=== PATIENT | female | born 1955 | race Caucasian/White ===

== ENCOUNTER 2016-08-22 22:45 | Inpatient (IN) | payer MEDICARE, OTHER ==
[~2016-08-22] VITALS: Ht 160 cm; Wt 73.5 kg
[~2016-08-22 22:45] MED LIST: CELEXA; CLINDAMYCIN300 MG PO; DILAUDID 4MG TAB4 MG; KLONOPIN0.5 MG PO; LAMICTAL 100MG100 MG PO; NEXIUM PO; OXYCONTIN80 MG PO; PERCOCET 325 MG1 TAB PO; SPIRIVA HANDIH18 MCG IH; [UNRECOGNIZED DRUG - OTHER]
[2016-08-22 23:48] LABS: HEMOGLOBIN 12.4 g/dl (12.5-16.0); MEAN CELL VOLUME 87 fl (80.0-100.0); MEAN CORPUSCULAR HEMOGLOBIN 31 pg (27.0-31.0); MEAN CORPUSCULAR HGB CONC 35 g/dl (33.0-37.0); MEAN PLATELET VOLUME 11.9 fl (7.4-10.4); PLATELET COUNT 137 K/mm3 (130-400); RED BLOOD COUNT 4.06 M/mm3 (4.10-5.30); REDCELL DISTRIBUTION WIDTH-CV 12.8 % (11.5-14.5); WHITE BLOOD COUNT 18.4 K/mm3 (4.8-10.8)
[2016-08-22 23:52] LABS: ADD PATHOLOGY DIFF REVIEW NO; HEMATOCRIT 35.4 % (37.0-47.0)
[2016-08-22 23:56] LABS: ADJUSTED CALCIUM 8.9 mg/dL (8.4-10.2); ALBUMIN 3.9 gm/dL (3.5-5.0); CALCIUM 8.8 mg/dL (8.4-10.2); CREATININE, serum 1.35 mg/dL (0.52-1.25); POTASSIUM 4.1 mmol/L (3.4-5.0); TOTAL PROTEIN 7.6 gm/dL (6.4-8.2)
[2016-08-22 23:58] LABS: BAND 46 % (0-10); NEUTROPHILS 50 % (42.0-75.2); PLATELET ESTIMATE NORMAL (NORMAL); TOTAL CELLS COUNTED 100
[2016-08-23] VITALS (7 sets, daily range): BP systolic 96–153; BP diastolic 57–75; PULSE 81–92; TEMP 97.8–99.7
[2016-08-23 00:20] LABS: INFLUENZA B NEGATIVE
[2016-08-23 01:49] LABS: ARTERIAL BLOOD GAS HCO3 22.5 meq/L (22-26); ARTERIAL BLOOD GAS PO2 51.7 mmHg (80-100)
[2016-08-23 01:50] LABS: ALLEN TEST YES; ALLENS TEST RESULT PASS; ARTERIAL BLD GAS O2 SATURATION 85.8 % (92-100); ARTERIAL BLD GAS TCO2 CT 23.7; ARTERIAL BLOOD GAS BASE EXCESS -1.9 (-2-2); ATS? YES
[2016-08-23 04:10] LABS: ARTERIAL BLD GAS O2 SATURATION 93.4 % (92-100); ARTERIAL BLD GAS TCO2 CT 23.7; ARTERIAL BLOOD GAS BASE EXCESS -1.6 (-2-2); ARTERIAL BLOOD GAS HCO3 22.6 meq/L (22-26); ARTERIAL BLOOD GAS PHT 7.41 C (7.35-7.45); ARTERIAL BLOOD GAS PO2 70.6 mmHg (80-100); ARTERIAL BLOOD GAS PO2T 70.6 (80-100); ARTERIAL BLOOD GAS pH 7.41 (7.35-7.45); OXYHEMOGLOBIN 92.7 %
[2016-08-23 04:11] LABS: ALLEN TEST NO; ATS? YES
[2016-08-23] MEDS ORDERED: SEROQUEL XR300 MG PO (07:48)
[2016-08-23] MEDS ORDERED: OXYCONTIN30 MG PO (07:53)
[2016-08-23] MEDS ORDERED: SEROQUEL50 MG PO (07:55)
[2016-08-23] MEDS ORDERED: CELEXA 20MG20 MG/TAB PO (08:39)
[2016-08-23] MEDS ORDERED: PROTONIX 40MG T40 MG PO (08:44)
[2016-08-23] MEDS ORDERED: SYNTHROID0.112 MG/T PO (08:45)
[2016-08-23] MEDS ORDERED: PROAIR HFA0.09 MG/AC IH (08:46)
[2016-08-23] MEDS ORDERED: CALCITRIOL PO (08:46)
[2016-08-23] MEDS ORDERED: KLONOPIN 0.5MG0.5 MG PO (15:10)
[2016-08-24 04:07] VITALS: BP 107/61; PULSE 80; TEMP 98.3
[2016-08-24 08:15] VITALS: BP 95/69; PULSE 72; TEMP 97.6
[2016-08-24 12:08] VITALS: BP 103/55; PULSE 74; TEMP 97.5
[2016-08-24 13:15] LABS: ALBUMIN 2.8 gm/dL (3.5-5.0); BILIRUBIN,TOTAL 0.5 mg/dL (0.0-1.0); CREATININE, serum 0.55 mg/dL (0.52-1.25); TOTAL PROTEIN 5.9 gm/dL (6.4-8.2)
[2016-08-24 13:17] LABS: MEAN CELL VOLUME 85 fl (80.0-100.0); MEAN CORPUSCULAR HGB CONC 36 g/dl (33.0-37.0); MEAN PLATELET VOLUME 12.2 fl (7.4-10.4); PLATELET COUNT 87 K/mm3 (130-400); RED BLOOD COUNT 3.36 M/mm3 (4.10-5.30); REDCELL DISTRIBUTION WIDTH-CV 13.2 % (11.5-14.5); WHITE BLOOD COUNT 12.8 K/mm3 (4.8-10.8)
[2016-08-24 13:23] LABS: ADD PATHOLOGY DIFF REVIEW NO; HEMATOCRIT 28.6 % (37.0-47.0); HEMOGLOBIN 10.4 g/dl (12.5-16.0); MEAN CORPUSCULAR HEMOGLOBIN 31 pg (27.0-31.0)
[2016-08-24 13:27] LABS: POTASSIUM 2.8 mmol/L (3.4-5.0)
[2016-08-24 13:32] LABS: BAND 22 % (0-10); NEUTROPHILS 73 % (42.0-75.2); TOTAL CELLS COUNTED 100
[2016-08-24 13:33] LABS: PLATELET ESTIMATE DECREASED (NORMAL)
[2016-08-24 16:32] VITALS: BP 112/65; PULSE 72; TEMP 98.3
[2016-08-24 20:04] VITALS: BP 132/93; PULSE 72; TEMP 97.3
[2016-08-25] VITALS (7 sets, daily range): BP systolic 112–158; BP diastolic 67–90; PULSE 75–102; TEMP 97.4–99.1
[2016-08-25 19:42] LABS: ARTERIAL BLD GAS O2 SATURATION 92.2 % (92-100); ARTERIAL BLOOD GAS BASE EXCESS -0.3 (-2-2); ARTERIAL BLOOD GAS HCO3 22.9 meq/L (22-26); ARTERIAL BLOOD GAS PHT 7.46 C (7.35-7.45); ARTERIAL BLOOD GAS PO2 63.6 mmHg (80-100); ARTERIAL BLOOD GAS PO2T 63.6 (80-100); ARTERIAL BLOOD GAS pH 7.46 (7.35-7.45); OXYHEMOGLOBIN 91.5 %
[2016-08-25 19:43] LABS: ALLEN TEST NO; ATS? YES
[2016-08-26 04:34] VITALS: BP 105/86; PULSE 102; TEMP 97.9
[2016-08-26 07:55] VITALS: BP 126/97; PULSE 105; TEMP 98.1
[2016-08-26 12:08] VITALS: BP 120/83; PULSE 98
[2016-08-26 16:34] VITALS: BP 122/81; PULSE 96; TEMP 97.2
[2016-08-26 19:42] VITALS: BP 131/82; PULSE 102; TEMP 98.8
[2016-08-27] VITALS (7 sets, daily range): BP systolic 105–137; BP diastolic 53–83; PULSE 86–100; TEMP 97.3–98.6
[2016-08-27 10:23] LABS: HEMATOCRIT 37.2 % (37.0-47.0); MEAN CELL VOLUME 85 fl (80.0-100.0); MEAN CORPUSCULAR HGB CONC 36 g/dl (33.0-37.0); MEAN PLATELET VOLUME 11.9 fl (7.4-10.4); RED BLOOD COUNT 4.37 M/mm3 (4.10-5.30); REDCELL DISTRIBUTION WIDTH-CV 13.5 % (11.5-14.5)
[2016-08-27 10:27] LABS: HEMOGLOBIN 13.4 g/dl (12.5-16.0); MEAN CORPUSCULAR HEMOGLOBIN 31 pg (27.0-31.0); PLATELET COUNT 218 K/mm3 (130-400)
[2016-08-27 10:28] LABS: ADD PATHOLOGY DIFF REVIEW NO
[2016-08-27 10:55] LABS: CALCIUM 8.1 mg/dL (8.4-10.2); CREATININE, serum 0.47 mg/dL (0.52-1.25); MAGNESIUM 1.7 mg/dL (1.6-2.3); POTASSIUM 3.4 mmol/L (3.4-5.0)
[2016-08-27 11:13] LABS: BAND 15 % (0-10); BASOPHIL 0 % (0-2); HYPOCHROMIA 1+; METAMYELOCYTE 1 % (0-0); NEUTROPHILS 80 % (42.0-75.2)
[2016-08-27 11:15] LABS: PLATELET ESTIMATE NORMAL (NORMAL); TOXIC GRANULATION PRESENT
[2016-08-27 11:17] LABS: TOTAL CELLS COUNTED 300
[2016-08-27 20:54] LABS: HEMATOCRIT 38.5 % (37.0-47.0); HEMOGLOBIN 13.6 g/dl (12.5-16.0); MEAN CELL VOLUME 87 fl (80.0-100.0); MEAN CORPUSCULAR HEMOGLOBIN 31 pg (27.0-31.0); MEAN CORPUSCULAR HGB CONC 35 g/dl (33.0-37.0); MEAN PLATELET VOLUME 10.8 fl (7.4-10.4); PLATELET COUNT 235 K/mm3 (130-400); RED BLOOD COUNT 4.44 M/mm3 (4.10-5.30); REDCELL DISTRIBUTION WIDTH-CV 13.9 % (11.5-14.5)
[2016-08-27 20:57] LABS: ADD PATHOLOGY DIFF REVIEW NO; WHITE BLOOD COUNT 38.1 K/mm3 (4.8-10.8)
[2016-08-27 21:02] LABS: CREATININE, serum 0.51 mg/dL (0.52-1.25); MAGNESIUM 1.8 mg/dL (1.6-2.3); PHOSPHOROUS 2.9 mg/dL (2.5-4.5); POTASSIUM 3.9 mmol/L (3.4-5.0)
[2016-08-27 21:11] LABS: BAND 22 % (0-10); EOSINOPHIL 1 % (0-4); METAMYELOCYTE 1 % (0-0); NEUTROPHILS 68 % (42.0-75.2); PLATELET ESTIMATE NORMAL (NORMAL); TOTAL CELLS COUNTED 101
[2016-08-27 21:19] LABS: TROPONIN-I 0.108 ng/mL (0.000-0.034)
[2016-08-28] VITALS (7 sets, daily range): BP systolic 113–140; BP diastolic 68–97; PULSE 74–94; TEMP 97.9–98.8
[2016-08-28 02:55] LABS: BASO # 0.1 (0.0-0.2); BASO % 0.4 % (0.0-2.0); EOS % 0.1 % (0-4.0); GRAN # 29.3 (1.4-6.5); GRAN % 82.5 % (42.2-75.2); LYMPH # 2.2 (1.2-3.4); LYMPH % 6.1 % (20.0-51.0); MEAN CELL VOLUME 85 fl (80.0-100.0); MEAN CORPUSCULAR HGB CONC 36 g/dl (33.0-37.0); MEAN PLATELET VOLUME 11.2 fl (7.4-10.4); MONO # 1.1 (0.1-0.6); MONO % 3.1 % (1.7-9.3); PLATELET COUNT 239 K/mm3 (130-400); RED BLOOD COUNT 3.88 M/mm3 (4.10-5.30); REDCELL DISTRIBUTION WIDTH-CV 13.8 % (11.5-14.5)
[2016-08-28 03:05] LABS: CALCIUM 7.6 mg/dL (8.4-10.2); CREATININE, serum 0.49 mg/dL (0.52-1.25); POTASSIUM 3.7 mmol/L (3.4-5.0)
[2016-08-28 03:23] LABS: HEMATOCRIT 33.1 % (37.0-47.0); HEMOGLOBIN 11.8 g/dl (12.5-16.0); MEAN CORPUSCULAR HEMOGLOBIN 30 pg (27.0-31.0)
[2016-08-28 03:24] LABS: WHITE BLOOD COUNT 35.5 K/mm3 (4.8-10.8)
[2016-08-29 02:35] LABS: PH 8 (5-8); SQUAMOUS EPITHELIAL 0-2 /hpf; URINE APPEARANCE Clear; URINE BACTERIA Rare /hpf; URINE BILIRUBIN Negative (NEGATIVE); URINE BLOOD Negative (NEGATIVE); URINE COLOR Yellow; URINE GLUCOSE Negative (NEGATIVE); URINE KETONE Negative (NEGATIVE); URINE UROBILINOGEN Negative (NEGATIVE)
[2016-08-29 04:03] VITALS: BP 136/71; PULSE 75; TEMP 98.9
[2016-08-29 08:10] VITALS: BP 137/78; PULSE 93; TEMP 94.6
[2016-08-29 08:43] LABS: HEMOGLOBIN 12.2 g/dl (12.5-16.0); MEAN CELL VOLUME 88 fl (80.0-100.0); MEAN CORPUSCULAR HEMOGLOBIN 30 pg (27.0-31.0); MEAN CORPUSCULAR HGB CONC 34 g/dl (33.0-37.0); MEAN PLATELET VOLUME 11.9 fl (7.4-10.4); PLATELET COUNT 279 K/mm3 (130-400); RED BLOOD COUNT 4.02 M/mm3 (4.10-5.30); REDCELL DISTRIBUTION WIDTH-CV 13.9 % (11.5-14.5)
[2016-08-29 08:58] LABS: HEMATOCRIT 35.5 % (37.0-47.0)
[2016-08-29 08:59] LABS: CALCIUM 7.1 mg/dL (8.4-10.2); CREATININE, serum 0.43 mg/dL (0.52-1.25); POTASSIUM 3.5 mmol/L (3.4-5.0)
[2016-08-29 09:00] LABS: ADD PATHOLOGY DIFF REVIEW NO; WHITE BLOOD COUNT 27.6 K/mm3 (4.8-10.8)
[2016-08-29 10:04] LABS: BAND 6 % (0-10); METAMYELOCYTE 1 % (0-0); MYELOCYTE 1 % (0-0); NEUTROPHILS 82 % (42.0-75.2); TOTAL CELLS COUNTED 100
[2016-08-29 11:10] VITALS: BP 104/68; PULSE 80; TEMP 97.4
[2016-08-29 16:38] VITALS: BP 125/68; PULSE 80; TEMP 97.9
[2016-08-29 19:50] VITALS: BP 133/80; PULSE 74; TEMP 98.2
[2016-08-30] VITALS (579 sets, daily range): BP systolic 68–140; BP diastolic 52–93; PULSE 73–95; TEMP 97.8–98.9; O2SAT 65–100
[2016-08-30 07:57] LABS: ADD PATHOLOGY DIFF REVIEW NO
[2016-08-30 08:17] LABS: C-REACTIVE PROTEIN 8.6 mg/dL (0.0-0.9); POTASSIUM 3.3 mmol/L (3.4-5.0)
[2016-08-30 08:27] LABS: HEMOGLOBIN 12.3 g/dl (12.5-16.0); MEAN CELL VOLUME 87 fl (80.0-100.0); MEAN CORPUSCULAR HEMOGLOBIN 30 pg (27.0-31.0); MEAN CORPUSCULAR HGB CONC 35 g/dl (33.0-37.0); MEAN PLATELET VOLUME 10.8 fl (7.4-10.4); PLATELET COUNT 337 K/mm3 (130-400); RED BLOOD COUNT 4.06 M/mm3 (4.10-5.30); REDCELL DISTRIBUTION WIDTH-CV 13.4 % (11.5-14.5)
[2016-08-30 08:54] LABS: HEMATOCRIT 35.3 % (37.0-47.0); WHITE BLOOD COUNT 27.1 K/mm3 (4.8-10.8)
[2016-08-30 11:16] LABS: BAND 5 % (0-10); METAMYELOCYTE 1 % (0-0); MYELOCYTE 1 % (0-0); NEUTROPHILS 87 % (42.0-75.2); PLATELET ESTIMATE NORMAL (NORMAL); TOXIC GRANULATION PRESENT
[2016-08-30 11:19] LABS: ERYTHROCYTE SEDIMENTATION RATE 28 mm/hr (0-30); TOTAL CELLS COUNTED 200
[2016-08-30 13:11] LABS: MEAN CELL VOLUME 86 fl (80.0-100.0); MEAN CORPUSCULAR HGB CONC 36 g/dl (33.0-37.0); MEAN PLATELET VOLUME 10.5 fl (7.4-10.4); PLATELET COUNT 303 K/mm3 (130-400); RED BLOOD COUNT 3.85 M/mm3 (4.10-5.30); REDCELL DISTRIBUTION WIDTH-CV 13.4 % (11.5-14.5)
[2016-08-30 13:12] LABS: INR 1.5 (0.8-3.0); PROTHROMBIN TIME 16.4 SECONDS (9.7-12.8)
[2016-08-30 13:14] LABS: HEMATOCRIT 33.2 % (37.0-47.0); HEMOGLOBIN 11.8 g/dl (12.5-16.0); MEAN CORPUSCULAR HEMOGLOBIN 31 pg (27.0-31.0); WHITE BLOOD COUNT 25.8 K/mm3 (4.8-10.8)
[2016-08-30 13:15] LABS: ADD PATHOLOGY DIFF REVIEW NO
[2016-08-30 13:20] LABS: ADJUSTED CALCIUM 7.7 mg/dL (8.4-10.2); ALBUMIN 2.5 gm/dL (3.5-5.0); BILIRUBIN,TOTAL 0.5 mg/dL (0.0-1.0); CALCIUM 6.5 mg/dL (8.4-10.2); CREATININE, serum 0.42 mg/dL (0.52-1.25); MAGNESIUM 1.4 mg/dL (1.6-2.3); POTASSIUM 3.6 mmol/L (3.4-5.0); TOTAL PROTEIN 6.1 gm/dL (6.4-8.2)
[2016-08-30 13:28] LABS: VENOUS BLOOD GAS BE 4.9 (-4-4); VENOUS BLOOD GAS SAO2 69.2 % (60-80)
[2016-08-30 13:29] LABS: VENOUS BLOOD GAS SITE CENTRAL LINE
[2016-08-30 13:33] LABS: TROPONIN-I 0.078 ng/mL (0.000-0.034)
[2016-08-30 15:15] LABS: BAND 5 % (0-10); NEUTROPHILS 87 % (42.0-75.2); PLATELET ESTIMATE NORMAL (NORMAL)
[2016-08-30 15:16] LABS: TOTAL CELLS COUNTED 100; TOXIC GRANULATION PRESENT
[2016-08-30 17:37] LABS: VENOUS BLOOD GAS BE 0.2 (-4-4); VENOUS BLOOD GAS SITE CENTRAL LINE
[2016-08-30 17:59] LABS: ARTERIAL BLD GAS O2 SATURATION 95.6 % (92-100); ARTERIAL BLD GAS TCO2 CT 25.6; ARTERIAL BLOOD GAS BASE EXCESS 1.7 (-2-2); ARTERIAL BLOOD GAS HCO3 24.6 meq/L (22-26); ARTERIAL BLOOD GAS PHT 7.49 C (7.35-7.45); ARTERIAL BLOOD GAS PO2 77.8 mmHg (80-100); ARTERIAL BLOOD GAS PO2T 77.8 (80-100); ARTERIAL BLOOD GAS pH 7.49 (7.35-7.45); OXYHEMOGLOBIN 94.9 %
[2016-08-30 18:01] LABS: ALLEN TEST YES; ALLENS TEST RESULT PASS; ATS? YES
[2016-08-30 19:46] LABS: PH 7 (5-8); SQUAMOUS EPITHELIAL 0-2 /hpf; URINE APPEARANCE Clear; URINE BACTERIA None Seen /hpf; URINE BILIRUBIN Negative (NEGATIVE); URINE BLOOD 2+ (NEGATIVE); URINE COLOR Straw; URINE GLUCOSE Negative (NEGATIVE); URINE KETONE Negative (NEGATIVE); URINE RBC 0-2 /hpf; URINE UROBILINOGEN Negative (NEGATIVE)
[2016-08-30 21:42] LABS: VENOUS BLOOD GAS BE -2.8 (-4-4); VENOUS BLOOD GAS SAO2 68.8 % (60-80)
[2016-08-30 21:43] LABS: VENOUS BLOOD GAS SITE CENTRAL LINE
[2016-08-31] VITALS (813 sets, daily range): BP systolic 110–141; BP diastolic 1–99; PULSE 70–81; TEMP 97–98.2; O2SAT 75–100
[2016-08-31 01:17] LABS: VENOUS BLOOD GAS BE -4.3 (-4-4); VENOUS BLOOD GAS SAO2 72.3 % (60-80)
[2016-08-31 01:18] LABS: VENOUS BLOOD GAS SITE CENTRAL LINE
[2016-08-31 05:24] LABS: VENOUS BLOOD GAS BE -0.7 (-4-4); VENOUS BLOOD GAS SAO2 63.4 % (60-80)
[2016-08-31 05:25] LABS: VENOUS BLOOD GAS SITE CENTRAL LINE
[2016-08-31 05:28] LABS: MEAN CELL VOLUME 88 fl (80.0-100.0); MEAN CORPUSCULAR HGB CONC 34 g/dl (33.0-37.0); MEAN PLATELET VOLUME 10.4 fl (7.4-10.4); PLATELET COUNT 322 K/mm3 (130-400); RED BLOOD COUNT 3.63 M/mm3 (4.10-5.30); REDCELL DISTRIBUTION WIDTH-CV 13.4 % (11.5-14.5)
[2016-08-31 05:44] LABS: ADD PATHOLOGY DIFF REVIEW NO; HEMOGLOBIN 10.9 g/dl (12.5-16.0); MEAN CORPUSCULAR HEMOGLOBIN 30 pg (27.0-31.0); WHITE BLOOD COUNT 24.2 K/mm3 (4.8-10.8)
[2016-08-31 05:46] LABS: INR 1.7 (0.8-3.0); PROTHROMBIN TIME 18.7 SECONDS (9.7-12.8)
[2016-08-31 06:10] LABS: ALBUMIN 2.3 gm/dL (3.5-5.0); BILIRUBIN,TOTAL 0.5 mg/dL (0.0-1.0); CREATININE, serum 0.42 mg/dL (0.52-1.25); MAGNESIUM 1.5 mg/dL (1.6-2.3); POTASSIUM 3.6 mmol/L (3.4-5.0); TOTAL PROTEIN 5.8 gm/dL (6.4-8.2)
[2016-08-31 06:18] LABS: BAND 12 % (0-10); NEUTROPHILS 83 % (42.0-75.2); TOTAL CELLS COUNTED 100
[2016-08-31 06:22] LABS: CALCIUM 5.6 mg/dL (8.4-10.2)
[2016-08-31 09:31] LABS: VENOUS BLOOD GAS BE -5.8 (-4-4); VENOUS BLOOD GAS SAO2 69.7 % (60-80)
[2016-08-31 09:32] LABS: VENOUS BLOOD GAS SITE CENTRAL LINE
[2016-08-31 13:45] LABS: VENOUS BLOOD GAS BE -3.5 (-4-4); VENOUS BLOOD GAS SAO2 73.4 % (60-80)
[2016-08-31 13:46] LABS: VENOUS BLOOD GAS SITE CENTRAL LINE
[2016-09-01 03:15] VITALS: BP 141/83; PULSE 72; TEMP 97.2
[2016-09-01 08:18] VITALS: BP 155/83; PULSE 73; TEMP 98
[2016-09-01 12:25] VITALS: BP 84/53; PULSE 88; TEMP 98.4
[2016-09-01 13:10] LABS: MEAN CELL VOLUME 87 fl (80.0-100.0); MEAN CORPUSCULAR HGB CONC 35 g/dl (33.0-37.0); MEAN PLATELET VOLUME 10.3 fl (7.4-10.4); PLATELET COUNT 388 K/mm3 (130-400); RED BLOOD COUNT 3.62 M/mm3 (4.10-5.30); REDCELL DISTRIBUTION WIDTH-CV 13.4 % (11.5-14.5)
[2016-09-01 13:14] LABS: ADD PATHOLOGY DIFF REVIEW NO; HEMATOCRIT 31.6 % (37.0-47.0); MEAN CORPUSCULAR HEMOGLOBIN 30 pg (27.0-31.0); WHITE BLOOD COUNT 26.5 K/mm3 (4.8-10.8)
[2016-09-01 13:23] LABS: ADJUSTED CALCIUM 8.5 mg/dL (8.4-10.2); ALBUMIN 2.4 gm/dL (3.5-5.0); BILIRUBIN,TOTAL 0.5 mg/dL (0.0-1.0); CALCIUM 7.2 mg/dL (8.4-10.2); CREATININE, serum 0.44 mg/dL (0.52-1.25); TOTAL PROTEIN 5.7 gm/dL (6.4-8.2)
[2016-09-01 13:34] LABS: INR 1.3 (0.8-3.0); PROTHROMBIN TIME 14.5 SECONDS (9.7-12.8)
[2016-09-01 14:54] LABS: BAND 3 % (0-10); NEUTROPHILS 90 % (42.0-75.2); TOTAL CELLS COUNTED 100
[2016-09-01 15:47] VITALS: BP 130/73; PULSE 82; TEMP 99.6
[2016-09-01 21:04] VITALS: BP 142/73; PULSE 70; TEMP 98.2
[2016-09-02] VITALS (16 sets, daily range): BP systolic 91–137; BP diastolic 48–84; PULSE 72–91; TEMP 97.4–98.6
[2016-09-02 07:10] LABS: MEAN CELL VOLUME 87 fl (80.0-100.0); MEAN CORPUSCULAR HGB CONC 35 g/dl (33.0-37.0); MEAN PLATELET VOLUME 10.7 fl (7.4-10.4); PLATELET COUNT 328 K/mm3 (130-400); RED BLOOD COUNT 2.52 M/mm3 (4.10-5.30); REDCELL DISTRIBUTION WIDTH-CV 13.2 % (11.5-14.5)
[2016-09-02 07:17] LABS: INR 1.3 (0.8-3.0); PROTHROMBIN TIME 14.6 SECONDS (9.7-12.8)
[2016-09-02 07:29] LABS: WHITE BLOOD COUNT 31.7 K/mm3 (4.8-10.8)
[2016-09-02 07:30] LABS: ADD PATHOLOGY DIFF REVIEW NO; HEMATOCRIT 21.8 % (37.0-47.0); HEMOGLOBIN 7.7 g/dl (12.5-16.0); MEAN CORPUSCULAR HEMOGLOBIN 31 pg (27.0-31.0)
[2016-09-02 07:34] LABS: BILIRUBIN,TOTAL 0.6 mg/dL (0.0-1.0); CALCIUM 6.4 mg/dL (8.4-10.2); CREATININE, serum 0.37 mg/dL (0.52-1.25); MAGNESIUM 1.4 mg/dL (1.6-2.3); TOTAL PROTEIN 4.9 gm/dL (6.4-8.2)
[2016-09-02 07:39] LABS: POTASSIUM 2.8 mmol/L (3.4-5.0)
[2016-09-02 08:13] LABS: BAND 2 % (0-10); NEUTROPHILS 90 % (42.0-75.2); TOTAL CELLS COUNTED 100
[2016-09-02 12:06] LABS: HEMATOCRIT 18.3 % (37.0-47.0); HEMOGLOBIN 6.3 g/dl (12.5-16.0)
[2016-09-03] VITALS (567 sets, daily range): BP systolic 119–172; BP diastolic 65–99; PULSE 76–87; TEMP 96.2–98.2; O2SAT 80–100
[2016-09-03 07:35] LABS: ADD PATHOLOGY DIFF REVIEW NO
[2016-09-03 07:56] LABS: INR 1.1 (0.8-3.0); PROTHROMBIN TIME 12.5 SECONDS (9.7-12.8)
[2016-09-03 08:23] LABS: MEAN CELL VOLUME 86 fl (80.0-100.0); MEAN CORPUSCULAR HGB CONC 34 g/dl (33.0-37.0); MEAN PLATELET VOLUME 11.1 fl (7.4-10.4); PLATELET COUNT 275 K/mm3 (130-400); RED BLOOD COUNT 3.36 M/mm3 (4.10-5.30); REDCELL DISTRIBUTION WIDTH-CV 14.6 % (11.5-14.5)
[2016-09-03 08:31] LABS: HEMOGLOBIN 9.9 g/dl (12.5-16.0); MEAN CORPUSCULAR HEMOGLOBIN 29 pg (27.0-31.0); WHITE BLOOD COUNT 44.2 K/mm3 (4.8-10.8)
[2016-09-03 08:47] LABS: ALBUMIN 2.4 gm/dL (3.5-5.0); BILIRUBIN,TOTAL 0.6 mg/dL (0.0-1.0); CALCIUM 7.7 mg/dL (8.4-10.2); CREATININE, serum 0.41 mg/dL (0.52-1.25); MAGNESIUM 1.9 mg/dL (1.6-2.3); POTASSIUM 3.7 mmol/L (3.4-5.0); TOTAL PROTEIN 5.8 gm/dL (6.4-8.2)
[2016-09-03 09:14] LABS: BAND 4 % (0-10); NEUTROPHILS 91 % (42.0-75.2); PLATELET ESTIMATE NORMAL (NORMAL); TOTAL CELLS COUNTED 300
[2016-09-04] VITALS (1211 sets, daily range): BP systolic 91–152; BP diastolic 59–91; PULSE 72–84; TEMP 97.5–99.8; O2SAT 56–100
[2016-09-04 01:09] LABS: ARTERIAL BLD GAS O2 SATURATION 79.5 % (92-100); ARTERIAL BLD GAS TCO2 CT 23.6; ARTERIAL BLOOD GAS BASE EXCESS -3.3 (-2-2); ARTERIAL BLOOD GAS HCO3 22.3 meq/L (22-26); ARTERIAL BLOOD GAS PHT 7.34 C (7.35-7.45); ARTERIAL BLOOD GAS pH 7.34 (7.35-7.45); OXYHEMOGLOBIN 78.9 %
[2016-09-04 01:11] LABS: ARTERIAL BLOOD GAS PO2 44.8 mmHg (80-100); ARTERIAL BLOOD GAS PO2T 44.8 (80-100)
[2016-09-04 01:12] LABS: ALLEN TEST NO; ATS? YES
[2016-09-04 05:49] LABS: ADJUSTED CALCIUM 8.2 mg/dL (8.4-10.2); ALBUMIN 1.9 gm/dL (3.5-5.0); BILIRUBIN,TOTAL 0.4 mg/dL (0.0-1.0); CALCIUM 6.5 mg/dL (8.4-10.2); CREATININE, serum 0.37 mg/dL (0.52-1.25); MAGNESIUM 1.5 mg/dL (1.6-2.3); POTASSIUM 3.5 mmol/L (3.4-5.0); TOTAL PROTEIN 4.7 gm/dL (6.4-8.2)
[2016-09-04 05:55] LABS: MEAN CELL VOLUME 87 fl (80.0-100.0); MEAN CORPUSCULAR HGB CONC 34 g/dl (33.0-37.0); PLATELET COUNT 223 K/mm3 (130-400); RED BLOOD COUNT 2.42 M/mm3 (4.10-5.30)
[2016-09-04 06:03] LABS: HEMOGLOBIN 7.2 g/dl (12.5-16.0); MEAN CORPUSCULAR HEMOGLOBIN 30 pg (27.0-31.0)
[2016-09-04 14:43] LABS: HEMATOCRIT 34.3 % (37.0-47.0)
[2016-09-04 19:06] LABS: HEMATOCRIT 34.6 % (37.0-47.0); HEMOGLOBIN 11.8 g/dl (12.5-16.0)
[2016-09-04 19:19] LABS: CALCIUM 7.1 mg/dL (8.4-10.2); CREATININE, serum 0.44 mg/dL (0.52-1.25); MAGNESIUM 1.9 mg/dL (1.6-2.3); POTASSIUM 3.4 mmol/L (3.4-5.0)
[2016-09-04 20:24] LABS: ARTERIAL BLD GAS O2 SATURATION 90.9 % (92-100); ARTERIAL BLD GAS TCO2 CT 26.5; ARTERIAL BLOOD GAS HCO3 24.9 meq/L (22-26); ARTERIAL BLOOD GAS PO2 62.4 mmHg (80-100); ARTERIAL BLOOD GAS PO2T 62.4 (80-100); OXYHEMOGLOBIN 90.2 %
[2016-09-04 20:25] LABS: ALLEN TEST YES; ALLENS TEST RESULT PASS; ATS? YES
[2016-09-05] VITALS (1297 sets, daily range): BP systolic 91–162; BP diastolic 60–104; PULSE 65–83; TEMP 97–98.6; O2SAT 81–100
[2016-09-05 05:53] LABS: ADD PATHOLOGY DIFF REVIEW NO
[2016-09-05 06:01] LABS: INR 1.3 (0.8-3.0); PROTHROMBIN TIME 14.6 SECONDS (9.7-12.8)
[2016-09-05 06:05] LABS: HEMATOCRIT 43.6 % (37.0-47.0); MEAN CELL VOLUME 87 fl (80.0-100.0); MEAN CORPUSCULAR HGB CONC 34 g/dl (33.0-37.0); MEAN PLATELET VOLUME 10.3 fl (7.4-10.4); RED BLOOD COUNT 4.99 M/mm3 (4.10-5.30)
[2016-09-05 06:10] LABS: HEMOGLOBIN 14.8 g/dl (12.5-16.0); MEAN CORPUSCULAR HEMOGLOBIN 30 pg (27.0-31.0); PLATELET COUNT 108 K/mm3 (130-400)
[2016-09-05 06:33] LABS: BAND 9 % (0-10); METAMYELOCYTE 1 % (0-0); NEUTROPHILS 89 % (42.0-75.2); PLATELET ESTIMATE DECREASED (NORMAL); TOTAL CELLS COUNTED 100
[2016-09-05 06:57] LABS: ADJUSTED CALCIUM 7.6 mg/dL (8.4-10.2); ALBUMIN 1.5 gm/dL (3.5-5.0); BILIRUBIN,TOTAL 0.4 mg/dL (0.0-1.0); C-REACTIVE PROTEIN 8.6 mg/dL (0.0-0.9); CREATININE, serum 0.34 mg/dL (0.52-1.25); MAGNESIUM 1.6 mg/dL (1.6-2.3); TOTAL PROTEIN 3.9 gm/dL (6.4-8.2)
[2016-09-05 07:20] LABS: CALCIUM 5.6 mg/dL (8.4-10.2)
[2016-09-06] VITALS (772 sets, daily range): BP systolic 98–174; BP diastolic 59–106; PULSE 65–84; TEMP 97.4–98.9; O2SAT 79–100
[2016-09-06 05:21] LABS: ADD PATHOLOGY DIFF REVIEW NO
[2016-09-06 05:36] LABS: MEAN CELL VOLUME 91 fl (80.0-100.0); MEAN CORPUSCULAR HGB CONC 33 g/dl (33.0-37.0); MEAN PLATELET VOLUME 10.1 fl (7.4-10.4); RED BLOOD COUNT 3.29 M/mm3 (4.10-5.30); REDCELL DISTRIBUTION WIDTH-CV 15.3 % (11.5-14.5)
[2016-09-06 05:44] LABS: WHITE BLOOD COUNT 21.6 K/mm3 (4.8-10.8)
[2016-09-06 05:45] LABS: HEMATOCRIT 29.8 % (37.0-47.0); HEMOGLOBIN 9.9 g/dl (12.5-16.0); MEAN CORPUSCULAR HEMOGLOBIN 30 pg (27.0-31.0); PLATELET COUNT 219 K/mm3 (130-400)
[2016-09-06 06:47] LABS: BAND 8 % (0-10); NEUTROPHILS 89 % (42.0-75.2); PLATELET ESTIMATE NORMAL (NORMAL); TOTAL CELLS COUNTED 100
[2016-09-06 09:31] LABS: CALCIUM 6.9 mg/dL (8.4-10.2); CREATININE, serum 0.42 mg/dL (0.52-1.25); POTASSIUM 3.8 mmol/L (3.4-5.0)
[2016-09-07 05:22] VITALS: BP 150/78; PULSE 67; TEMP 97.4
[2016-09-07 07:32] LABS: MEAN CELL VOLUME 88 fl (80.0-100.0); MEAN CORPUSCULAR HGB CONC 34 g/dl (33.0-37.0); MEAN PLATELET VOLUME 10.4 fl (7.4-10.4); PLATELET COUNT 257 K/mm3 (130-400); RED BLOOD COUNT 3.87 M/mm3 (4.10-5.30)
[2016-09-07 07:46] LABS: ADJUSTED CALCIUM 8.7 mg/dL (8.4-10.2); ALBUMIN 2.2 gm/dL (3.5-5.0); BILIRUBIN,TOTAL 0.5 mg/dL (0.0-1.0); CALCIUM 7.3 mg/dL (8.4-10.2); CREATININE, serum 0.41 mg/dL (0.52-1.25); POTASSIUM 3.7 mmol/L (3.4-5.0); TOTAL PROTEIN 5.5 gm/dL (6.4-8.2)
[2016-09-07 08:12] LABS: HEMOGLOBIN 11.5 g/dl (12.5-16.0); MEAN CORPUSCULAR HEMOGLOBIN 30 pg (27.0-31.0); WHITE BLOOD COUNT 24.4 K/mm3 (4.8-10.8)
[2016-09-07 08:15] VITALS: BP 143/84; PULSE 79; TEMP 98.6
[2016-09-07 12:04] VITALS: BP 134/83; PULSE 75; TEMP 97.6
[2016-09-07 15:42] VITALS: BP 131/74; PULSE 72; TEMP 97.8
[2016-09-07 20:29] VITALS: BP 150/78; PULSE 81; TEMP 98
[2016-09-08] VITALS (8 sets, daily range): BP systolic 87–157; BP diastolic 52–85; PULSE 75–170; TEMP 97.2–99
[2016-09-08 07:43] LABS: MEAN CELL VOLUME 88 fl (80.0-100.0); MEAN CORPUSCULAR HGB CONC 34 g/dl (33.0-37.0); PLATELET COUNT 270 K/mm3 (130-400); RED BLOOD COUNT 3.97 M/mm3 (4.10-5.30); REDCELL DISTRIBUTION WIDTH-CV 15.2 % (11.5-14.5)
[2016-09-08 08:07] LABS: ADJUSTED CALCIUM 8.8 mg/dL (8.4-10.2); ALBUMIN 2.2 gm/dL (3.5-5.0); BILIRUBIN,TOTAL 0.3 mg/dL (0.0-1.0); CALCIUM 7.4 mg/dL (8.4-10.2); CREATININE, serum 0.45 mg/dL (0.52-1.25); POTASSIUM 3.1 mmol/L (3.4-5.0); TOTAL PROTEIN 5.6 gm/dL (6.4-8.2)
[2016-09-08 08:19] LABS: HEMATOCRIT 34.8 % (37.0-47.0); HEMOGLOBIN 11.8 g/dl (12.5-16.0); MEAN CORPUSCULAR HEMOGLOBIN 30 pg (27.0-31.0); WHITE BLOOD COUNT 19.9 K/mm3 (4.8-10.8)
[2016-09-08 08:20] LABS: ADD PATHOLOGY DIFF REVIEW NO
[2016-09-08 08:44] LABS: NEUTROPHILS 95 % (42.0-75.2); TOTAL CELLS COUNTED 100
[2016-09-09 04:17] VITALS: BP 129/73; PULSE 75; TEMP 98.2
[2016-09-09 07:52] LABS: HEMOGLOBIN 12.2 g/dl (12.5-16.0); MEAN CELL VOLUME 88 fl (80.0-100.0); MEAN CORPUSCULAR HEMOGLOBIN 30 pg (27.0-31.0); MEAN CORPUSCULAR HGB CONC 34 g/dl (33.0-37.0); MEAN PLATELET VOLUME 10.3 fl (7.4-10.4); PLATELET COUNT 251 K/mm3 (130-400); RED BLOOD COUNT 4.07 M/mm3 (4.10-5.30); WHITE BLOOD COUNT 18.8 K/mm3 (4.8-10.8)
[2016-09-09 08:06] LABS: CREATININE, serum 0.39 mg/dL (0.52-1.25); POTASSIUM 3.1 mmol/L (3.4-5.0)
[2016-09-09 08:07] VITALS: BP 159/82; PULSE 72; TEMP 98
[2016-09-09 08:12] LABS: ADD PATHOLOGY DIFF REVIEW NO; HEMATOCRIT 35.9 % (37.0-47.0)
[2016-09-09 10:29] LABS: BAND 2 % (0-10); NEUTROPHILS 89 % (42.0-75.2); PLATELET ESTIMATE NORMAL (NORMAL); TOTAL CELLS COUNTED 100
[2016-09-09 10:31] LABS: ANISOCYTOSIS 1+; OVALOCYTES 1+
[2016-09-09 12:12] VITALS: BP 117/79; PULSE 78; TEMP 98
[2016-09-09 16:02] VITALS: BP 149/81; PULSE 73; TEMP 98.1
[2016-09-09 19:45] VITALS: BP 177/85; PULSE 72; TEMP 98.3
[2016-09-10 00:26] VITALS: BP 118/66; PULSE 73; TEMP 97.6
[2016-09-10 03:58] VITALS: BP 138/82; PULSE 78; TEMP 98.5
[2016-09-10 07:42] VITALS: BP 151/83; PULSE 74; TEMP 98.4
[2016-09-10 07:57] VITALS: BP 92/64; PULSE 75; TEMP 97.7
[2016-09-10 10:06] LABS: INR 1.5 (0.8-3.0); PROTHROMBIN TIME 17.3 SECONDS (9.7-12.8)
[2016-09-10 10:16] LABS: CALCIUM 6.7 mg/dL (8.4-10.2); CREATININE, serum 0.39 mg/dL (0.52-1.25)
[2016-09-10 10:17] LABS: POTASSIUM 2.7 mmol/L (3.4-5.0)
[2016-09-10 10:26] LABS: HEMOGLOBIN 12.6 g/dl (12.5-16.0); MEAN CELL VOLUME 86 fl (80.0-100.0); MEAN CORPUSCULAR HEMOGLOBIN 30 pg (27.0-31.0); MEAN CORPUSCULAR HGB CONC 35 g/dl (33.0-37.0); MEAN PLATELET VOLUME 10.3 fl (7.4-10.4); PLATELET COUNT 206 K/mm3 (130-400); RED BLOOD COUNT 4.21 M/mm3 (4.10-5.30); REDCELL DISTRIBUTION WIDTH-CV 14.9 % (11.5-14.5); WHITE BLOOD COUNT 16.8 K/mm3 (4.8-10.8)
[2016-09-10 10:27] LABS: HEMATOCRIT 36.3 % (37.0-47.0)
[2016-09-10 12:08] VITALS: BP 141/82; PULSE 81; TEMP 98
[2016-09-10] MEDS ORDERED: LEVAQUIN 750MG750 M1 PO (12:47)
[2016-09-10] MEDS ORDERED: FLAGYL500 MG PO (12:47)
[2016-09-10] MEDS ORDERED: LOVENOX 8080 MG/0.8 SQ (12:48)
[2016-09-10] MEDS ORDERED: COUMADIN 5MG5 MG/TAB PO (12:48)
[2016-09-10] MEDS ORDERED: MAG-OX 400400 MG/TAB PO (12:50)
[2016-09-10] MEDS ORDERED: SEROQUEL 1100 MG/TAB PO (12:50)
[2016-09-10] MEDS ORDERED: K-TAB20 PO (12:50)
[2016-09-10] MEDS ORDERED: LASIX 40MG TABL40 MG PO (12:51)
[2016-09-10] MEDS ORDERED: SYNTHROID0.125 MG/T PO (13:02)
[2016-09-10] MEDS ORDERED: PREDNISONE10 MG PO (13:06)
== END 2016-09-10 15:05 | DRG 853 ==
LOC: COL.ER 22:45 → MEDICAL 08-23 01:47 → ICU 08-23 01:47 → MEDICAL 08-31 18:30 → ICU 09-03 12:02 → MEDICAL 09-06 17:30
PROVIDERS: Emergency Medicine; Internal Medicine; Internal Medicine Pulmonary Disease; Nurse Practitioner; Nurse Practitioner Family; Surgery
PROC: 0W9B3ZX Drainage of Left Pleural Cavity, Percutaneous Approach, Diagnostic (ICD-10-PCS; 2016-08-30)
PROC: 0W9B40Z Drainage of Left Pleural Cavity with Drainage Device, Percutaneous Endoscopic Approach (ICD-10-PCS; 2016-09-04)
PROC: 0BCP4ZZ Extirpation of Matter from Left Pleura, Percutaneous Endoscopic Approach (ICD-10-PCS; 2016-09-04)
PROC: 0BNP4ZZ Release Left Pleura, Percutaneous Endoscopic Approach (ICD-10-PCS; principal; 2016-09-04 19:45)
DX: A40.3 Sepsis due to Streptococcus pneumoniae (principal); J13 Pneumonia due to Streptococcus pneumoniae; J96.01 Acute respiratory failure with hypoxia; J44.0 Chronic obstructive pulmonary disease with (acute) lower respiratory infection; J44.1 Chronic obstructive pulmonary disease with (acute) exacerbation; E87.1 Hypo-osmolality and hyponatremia; N17.9 Acute kidney failure, unspecified; J90 Pleural effusion, not elsewhere classified; T82.868A Thrombosis due to vascular prosthetic devices, implants and grafts, initial encounter; E44.0 Moderate protein-calorie malnutrition; K56.7 Ileus, unspecified; R18.8 Other ascites; J94.2 Hemothorax; I47.1 Supraventricular tachycardia; F17.210 Nicotine dependence, cigarettes, uncomplicated; L93.0 Discoid lupus erythematosus; M79.7 Fibromyalgia; M06.9 Rheumatoid arthritis, unspecified; E87.6 Hypokalemia; D50.0 Iron deficiency anemia secondary to blood loss (chronic)
CPT/HCPCS: 99223-AI; 99232-AI; 99233-AI; 99239; A4315; A7048; A9284; C1751; J0330; J0456; J0610; J0690; J0692; J0696; J1170; J1200; J1644; J1650; J1720; J1940; J1956; J2020; J2250; J2370; J2405; J2704; J2920; J2930; J3010; J3370; J3475; J3480; J7030; J7042; J7050; J7120; J7512; P9016; Q9967

== ENCOUNTER 2016-09-10 14:14 | Inpatient (IN) | payer MEDICARE, OTHER ==
[~2016-09-10] VITALS: Ht 152.4 cm; Wt 59.5 kg
[~2016-09-10 14:14] MED LIST changes: +CALCITRIOL PO; +CELEXA 20MG20 MG/TAB PO; +COUMADIN 5MG5 MG/TAB PO; +FLAGYL500 MG PO; +K-TAB20 PO; +KLONOPIN 0.5MG0.5 MG PO; +LASIX 40MG TABL40 MG PO; +LEVAQUIN 750MG750 M1 PO; +LOVENOX 8080 MG/0.8 SQ; +MAG-OX 400400 MG/TAB PO; +OXYCONTIN30 MG PO; +PREDNISONE10 MG PO; +PROAIR HFA0.09 MG/AC IH; +PROTONIX 40MG T40 MG PO; +SEROQUEL 1100 MG/TAB PO; +SEROQUEL XR300 MG PO; +SEROQUEL50 MG PO; +SYNTHROID0.112 MG/T PO; +SYNTHROID0.125 MG/T PO
[2016-09-10 15:45] VITALS: BP 144/77; PULSE 73; TEMP 98
[2016-09-11 04:36] VITALS: BP 135/76; PULSE 91; TEMP 98.5
[2016-09-11 07:36] LABS: HEMOGLOBIN 12.4 g/dl (12.5-16.0); MEAN CELL VOLUME 88 fl (80.0-100.0); MEAN CORPUSCULAR HEMOGLOBIN 30 pg (27.0-31.0); MEAN CORPUSCULAR HGB CONC 34 g/dl (33.0-37.0); MEAN PLATELET VOLUME 9.9 fl (7.4-10.4); PLATELET COUNT 202 K/mm3 (130-400); RED BLOOD COUNT 4.17 M/mm3 (4.10-5.30); REDCELL DISTRIBUTION WIDTH-CV 15.2 % (11.5-14.5); WHITE BLOOD COUNT 16.5 K/mm3 (4.8-10.8)
[2016-09-11 07:39] LABS: ADD PATHOLOGY DIFF REVIEW NO; HEMATOCRIT 36.5 % (37.0-47.0)
[2016-09-11 07:45] LABS: CALCIUM 6.5 mg/dL (8.4-10.2); CREATININE, serum 0.4 mg/dL (0.52-1.25); MAGNESIUM 1.6 mg/dL (1.6-2.3); POTASSIUM 3.7 mmol/L (3.4-5.0)
[2016-09-11 07:58] LABS: INR 2.1 (0.8-3.0); PROTHROMBIN TIME 24.1 SECONDS (9.7-12.8)
[2016-09-11 16:21] VITALS: BP 146/105; PULSE 71; TEMP 98.2
[2016-09-11 16:33] LABS: BAND 1 % (0-10); NEUTROPHILS 95 % (42.0-75.2); TOTAL CELLS COUNTED 100
[2016-09-11 16:35] LABS: BURR CELLS 1+
[2016-09-11 16:36] LABS: ANISOCYTOSIS 1+; HYPOCHROMIA 1+; POIKILOCYTOSIS 1+; ROULEAUX 1+
[2016-09-11 20:30] VITALS: BP 155/97; PULSE 73; TEMP 99.9
[2016-09-12 05:05] VITALS: BP 150/86; PULSE 72; TEMP 99.5
[2016-09-12 07:47] LABS: CALCIUM 6.2 mg/dL (8.4-10.2); CREATININE, serum 0.43 mg/dL (0.52-1.25); POTASSIUM 4.1 mmol/L (3.4-5.0)
[2016-09-12 07:53] LABS: PROTHROMBIN TIME 37.8 SECONDS (9.7-12.8)
[2016-09-12 08:25] LABS: INR 3.3 (0.8-3.0)
[2016-09-12 18:02] VITALS: BP 148/107; PULSE 75; TEMP 98.3
[2016-09-13 03:30] VITALS: BP 143/88; PULSE 83; TEMP 98.7
[2016-09-13 15:49] LABS: PROTHROMBIN TIME 22.7 SECONDS (9.7-12.8)
[2016-09-13 16:26] VITALS: BP 150/96; PULSE 65; TEMP 98.2
[2016-09-14 04:10] VITALS: BP 121/73; PULSE 73; TEMP 97.2
[2016-09-14 08:55] LABS: CALCIUM 6.6 mg/dL (8.4-10.2); CREATININE, serum 0.41 mg/dL (0.52-1.25); MAGNESIUM 1.9 mg/dL (1.6-2.3); POTASSIUM 4.5 mmol/L (3.4-5.0)
[2016-09-14 12:21] LABS: INR 1.7 (0.8-3.0); PROTHROMBIN TIME 19.2 SECONDS (9.7-12.8)
[2016-09-14 18:04] VITALS: BP 108/65; PULSE 70; TEMP 99.4
[2016-09-15 07:20] VITALS: BP 145/88; PULSE 80; TEMP 98.5
[2016-09-15 15:39] LABS: PH 8 (5-8); SQUAMOUS EPITHELIAL None Seen /hpf; URINE APPEARANCE Cloudy; URINE BACTERIA None Seen /hpf; URINE BILIRUBIN Negative (NEGATIVE); URINE BLOOD 3+ (NEGATIVE); URINE COLOR Yellow; URINE GLUCOSE Negative (NEGATIVE); URINE KETONE Negative (NEGATIVE); URINE RBC >50 /hpf; URINE UROBILINOGEN Negative (NEGATIVE); URINE WBC None Seen /hpf
[2016-09-15 16:23] LABS: ADD PATHOLOGY DIFF REVIEW NO
[2016-09-15 16:27] LABS: HEMATOCRIT 37.8 % (37.0-47.0); HEMOGLOBIN 12.7 g/dl (12.5-16.0); MEAN CELL VOLUME 90 fl (80.0-100.0); MEAN CORPUSCULAR HEMOGLOBIN 30 pg (27.0-31.0); MEAN CORPUSCULAR HGB CONC 34 g/dl (33.0-37.0); MEAN PLATELET VOLUME 10.4 fl (7.4-10.4); PLATELET COUNT 201 K/mm3 (130-400); RED BLOOD COUNT 4.19 M/mm3 (4.10-5.30); REDCELL DISTRIBUTION WIDTH-CV 15.7 % (11.5-14.5); WHITE BLOOD COUNT 16.7 K/mm3 (4.8-10.8)
[2016-09-15 16:37] LABS: INR 1.5 (0.8-3.0); PROTHROMBIN TIME 17.1 SECONDS (9.7-12.8)
[2016-09-15 16:54] LABS: ADJUSTED CALCIUM 7.2 mg/dL (8.4-10.2); BILIRUBIN,TOTAL 0.5 mg/dL (0.0-1.0); CALCIUM 6.4 mg/dL (8.4-10.2); CREATININE, serum 0.45 mg/dL (0.52-1.25); MAGNESIUM 1.9 mg/dL (1.6-2.3); POTASSIUM 4.2 mmol/L (3.4-5.0); TOTAL PROTEIN 6.6 gm/dL (6.4-8.2)
[2016-09-15 17:05] LABS: BAND 18 % (0-10); NEUTROPHILS 81 % (42.0-75.2); TOTAL CELLS COUNTED 100
[2016-09-15 17:06] LABS: PLATELET ESTIMATE NORMAL (NORMAL)
[2016-09-15 17:08] VITALS: BP 123/82; PULSE 75; TEMP 97.2
[2016-09-16 04:20] VITALS: BP 111/65; PULSE 71; TEMP 98.2
[2016-09-16 07:27] LABS: INR 1.8 (0.8-3.0)
[2016-09-16 17:13] VITALS: BP 134/71; PULSE 73; TEMP 97.9
[2016-09-17 04:24] VITALS: BP 110/67; PULSE 70; TEMP 97.9
[2016-09-17 08:31] LABS: MEAN CELL VOLUME 90 fl (80.0-100.0); MEAN CORPUSCULAR HGB CONC 33 g/dl (33.0-37.0); MEAN PLATELET VOLUME 10.4 fl (7.4-10.4); PLATELET COUNT 221 K/mm3 (130-400); RED BLOOD COUNT 3.64 M/mm3 (4.10-5.30); REDCELL DISTRIBUTION WIDTH-CV 15.9 % (11.5-14.5); WHITE BLOOD COUNT 9.5 K/mm3 (4.8-10.8)
[2016-09-17 08:32] LABS: INR 1.6 (0.8-3.0); PROTHROMBIN TIME 17.6 SECONDS (9.7-12.8)
[2016-09-17 08:48] LABS: CALCIUM 6.1 mg/dL (8.4-10.2); CREATININE, serum 0.41 mg/dL (0.52-1.25); MAGNESIUM 1.8 mg/dL (1.6-2.3)
[2016-09-17 09:00] LABS: ADD PATHOLOGY DIFF REVIEW NO; HEMATOCRIT 32.7 % (37.0-47.0); HEMOGLOBIN 10.9 g/dl (12.5-16.0); MEAN CORPUSCULAR HEMOGLOBIN 30 pg (27.0-31.0)
[2016-09-17 09:41] LABS: BAND 2 % (0-10); EOSINOPHIL 4 % (0-4); NEUTROPHILS 72 % (42.0-75.2); TOTAL CELLS COUNTED 100
[2016-09-17 09:42] LABS: PLATELET ESTIMATE NORMAL (NORMAL)
[2016-09-17 16:12] VITALS: BP 122/79; PULSE 70; TEMP 97.9
[2016-09-18 07:19] VITALS: BP 133/66; PULSE 79; TEMP 99
[2016-09-18 08:43] LABS: INR 1.2 (0.8-3.0); PROTHROMBIN TIME 13.6 SECONDS (9.7-12.8)
[2016-09-18 16:21] VITALS: BP 124/73; PULSE 74; TEMP 99.1
[2016-09-19 05:49] VITALS: BP 126/59; PULSE 73; TEMP 98.4
[2016-09-19 08:43] LABS: INR 1.5 (0.8-3.0); PROTHROMBIN TIME 16.9 SECONDS (9.7-12.8)
[2016-09-19 09:09] LABS: CALCIUM 8.4 mg/dL (8.4-10.2); CREATININE, serum 0.5 mg/dL (0.52-1.25); MAGNESIUM 1.6 mg/dL (1.6-2.3)
[2016-09-19 16:33] VITALS: BP 126/70; PULSE 70; TEMP 97
[2016-09-20 04:24] VITALS: BP 124/61; PULSE 70; TEMP 97.7
[2016-09-20 18:08] VITALS: BP 127/51; PULSE 74; TEMP 98.2
[2016-09-20 23:48] LABS: PH 8 (5-8); SQUAMOUS EPITHELIAL None Seen /hpf; URINE APPEARANCE Cloudy; URINE BACTERIA Rare /hpf; URINE BILIRUBIN Negative (NEGATIVE); URINE BLOOD 3+ (NEGATIVE); URINE COLOR Yellow; URINE GLUCOSE Negative (NEGATIVE); URINE KETONE Negative (NEGATIVE); URINE RBC >50 /hpf; URINE UROBILINOGEN Negative (NEGATIVE); URINE WBC 20-50 /hpf
[2016-09-21 04:29] VITALS: BP 123/55; PULSE 63; TEMP 97.8
[2016-09-21 07:38] LABS: CALCIUM 7.9 mg/dL (8.4-10.2); CREATININE, serum 0.46 mg/dL (0.52-1.25); MAGNESIUM 1.8 mg/dL (1.6-2.3); PHOSPHOROUS 3.9 mg/dL (2.5-4.5); POTASSIUM 4.3 mmol/L (3.4-5.0)
[2016-09-21 08:01] LABS: INR 2.5 (0.8-3.0); PROTHROMBIN TIME 28.7 SECONDS (9.7-12.8)
[2016-09-21 17:03] VITALS: BP 140/82; PULSE 77; TEMP 97.8
[2016-09-22 05:12] VITALS: BP 125/83; PULSE 81; TEMP 98
[2016-09-22 18:06] VITALS: BP 125/62; PULSE 73; TEMP 97.8
[2016-09-23 05:11] VITALS: BP 122/57; PULSE 70; TEMP 98
[2016-09-23 12:25] LABS: INR 2.6 (0.8-3.0); PROTHROMBIN TIME 29.9 SECONDS (9.7-12.8)
[2016-09-23 18:04] VITALS: BP 145/67; PULSE 78; TEMP 97.5
[2016-09-24 05:17] VITALS: BP 125/73; PULSE 85; TEMP 98.1
[2016-09-24 07:28] LABS: CALCIUM 7.8 mg/dL (8.4-10.2); CREATININE, serum 0.47 mg/dL (0.52-1.25); MAGNESIUM 1.7 mg/dL (1.6-2.3); POTASSIUM 3.7 mmol/L (3.4-5.0)
[2016-09-24 12:46] LABS: ADD PATHOLOGY DIFF REVIEW NO
[2016-09-24] MEDS ORDERED: LEVAQUIN 5500 MG/TA1 PO (12:57)
[2016-09-24] MEDS ORDERED: FLOMAX 0.40.4 MG/CAP PO (12:58)
[2016-09-24] MEDS ORDERED: PROAIR HFA0.09 MG/AC IH (12:58)
[2016-09-24] MEDS ORDERED: COUMADIN 3MG3 MG/TAB PO (12:58)
[2016-09-24] MEDS ORDERED: TYLENOL 325MG325 MG PO (12:59)
[2016-09-24] MEDS ORDERED: LASIX 40MG TABL40 MG PO (13:00)
[2016-09-24] MEDS ORDERED: ROCALTROL0.5 MCG PO (13:05)
[2016-09-24] MEDS ORDERED: ULTRAM 50MG TAB50 MG PO (13:05)
[2016-09-24] MEDS ORDERED: KLOR-CON M2020 MEQ PO (13:07)
[2016-09-24 13:13] LABS: BAND 2 % (0-10); BASOPHIL 2 % (0-2); EOSINOPHIL 3 % (0-4); METAMYELOCYTE 1 % (0-0); NEUTROPHILS 71 % (42.0-75.2); TOTAL CELLS COUNTED 100
[2016-09-24 13:16] LABS: ANISOCYTOSIS 1+; MICROCYTOSIS 1+; POLYCHROMASIA 1+
[2016-09-24 13:30] LABS: HEMATOCRIT 32.3 % (37.0-47.0); HEMOGLOBIN 10.2 g/dl (12.5-16.0); MEAN CELL VOLUME 95 fl (80.0-100.0); MEAN CORPUSCULAR HEMOGLOBIN 30 pg (27.0-31.0); MEAN CORPUSCULAR HGB CONC 32 g/dl (33.0-37.0); MEAN PLATELET VOLUME 10.2 fl (7.4-10.4); PLATELET COUNT 296 K/mm3 (130-400); RED BLOOD COUNT 3.41 M/mm3 (4.10-5.30); WHITE BLOOD COUNT 7.3 K/mm3 (4.8-10.8)
== END 2016-09-24 16:00 | disposition home or self-care (01) | DRG 947 ==
PROVIDERS: Family Medicine; Internal Medicine; Internal Medicine Pulmonary Disease
DX: R53.81 Other malaise (principal); J15.4 Pneumonia due to other streptococci; J96.01 Acute respiratory failure with hypoxia; G72.81 Critical illness myopathy; T82.818A Embolism due to vascular prosthetic devices, implants and grafts, initial encounter; E87.1 Hypo-osmolality and hyponatremia; E44.0 Moderate protein-calorie malnutrition; N17.9 Acute kidney failure, unspecified; J44.1 Chronic obstructive pulmonary disease with (acute) exacerbation; N39.0 Urinary tract infection, site not specified; L93.0 Discoid lupus erythematosus; M06.9 Rheumatoid arthritis, unspecified; F17.210 Nicotine dependence, cigarettes, uncomplicated; E87.6 Hypokalemia; M79.7 Fibromyalgia
CPT/HCPCS: 99222-AI; 99232-AI; 99233-AI; 99239; A4315; J0610; J0696; J1650; J7512

== ENCOUNTER → 2018-01-03 | Outpatient (REF) ==
[~2018-01-03] MED LIST changes: +COUMADIN 3MG3 MG/TAB PO; +FLOMAX 0.40.4 MG/CAP PO; +KLOR-CON M2020 MEQ PO; +LEVAQUIN 5500 MG/TA1 PO; +ROCALTROL0.5 MCG PO; +TYLENOL 325MG325 MG PO; +ULTRAM 50MG TAB50 MG PO
== END ==
LOC: ZCOL.LAB 14:25
DX: Z01.89 Encounter for other specified special examinations (principal)

== ENCOUNTER → 2019-06-30 | Outpatient (CLI) | payer MEDICARE, OTHER ==
[~2019-06-30] MED LIST changes: +AMOXICILLIN 8751 TAB PO; +PREDNISONE20 MG PO
== END ==
LOC: COL.PUL 06-25 08:50
DX: J43.1 Panlobular emphysema (principal)